=== PATIENT | male | born 1985 | race Caucasian/White ===

== ENCOUNTER 2017-10-24 11:21 | Emergency (ER) | payer SELFPAY ==
[~2017-10-24] VITALS: Ht 177.8 cm; Wt 58.1 kg
[2017-10-24] MEDS ORDERED: SODIUM CHLORIDE 0.9% 1000ML 1,000 ML IV STA ×2 (11:22→13:07)
[2017-10-24] MEDS ORDERED: MORPHINE SULFATE 4 MG/ML SYR IV STA (11:22)
[2017-10-24] MEDS ORDERED: ONDANSETRON HCL 4 MG ORAL DISINTEGRATING TAB PO ONE (11:30)
[2017-10-24] MEDS ORDERED: HYDROMORPHONE 1MG/1ML INJ IV STA ×3 (11:41→13:46)
[2017-10-24] MEDS ORDERED: HYDROMORPHONE 2MG/ML INJ IV NR ×2 (11:45→14:00)
[2017-10-24 12:06] LABS: BASOPHILS % 0.2 % (0.0-1.0); EOSINOPHILS # (AUTO) 0.1 (0.0-0.4); EOSINOPHILS % 0.3 % (0.0-6.0); HEMATOCRIT 44.9 % (38.2-49.6); HEMOGLOBIN 16.3 g/dL (14.0-18.0); LYMPHOCYTES # (AUTO) 1.6 (1.0-3.2); LYMPHOCYTES % 9.7 % (18.0-39.1); MEAN CORPUSCULAR HEMOGLOBIN 30.5 pg (28-32); MEAN CORPUSCULAR HGB CONC 36.3 g/dL (31-35); MEAN CORPUSCULAR VOLUME 83.9 fL (81-99); MONOCYTES # (AUTO) 0.8 (0.2-0.8); MONOCYTES % 4.9 % (4.4-11.3); NEUTROPHILS # (AUTO) 14.3 (2.1-6.9); NEUTROPHILS % 84.3 % (38.7-80.0); PLATELET COUNT 198 x10e3/uL (140-360); RED BLOOD COUNT 5.35 x10e6/uL (4.3-5.7); RED CELL DISTRIBUTION WIDTH 12.5 % (11.7-14.4)
[2017-10-24 12:25] LABS: ALANINE AMINOTRANSFERASE 8 IU/L (0-55); ALBUMIN 4.8 g/dL (3.5-5.0); ALBUMIN/GLOBULIN RATIO 1.6 (0.8-2.0); ALKALINE PHOSPHATASE 68 IU/L (40-150); ANION GAP 19.6 mmol/L (8-16); BLOOD UREA NITROGEN 15 mg/dL (7-26); BUN/CREATININE RATIO 13 (6-25); CALCIUM 10.2 mg/dL (8.4-10.2); CARBON DIOXIDE 20 mmol/L (22-29); CHLORIDE 102 mmol/L (98-107); CREATININE, SERUM 1.17 mg/dL (0.72-1.25); EST GLOMERULAR FILTRATION RATE > 60 ML/MIN (60-); GLUCOSE 107 mg/dL (74-118); POTASSIUM 3.6 mmol/L (3.5-5.1); SODIUM 138 mmol/L (136-145)
[2017-10-24 12:48] LABS: BILIRUBIN,URINE 1+ (NEGATIVE); CLARITY,URINE CLOUDY (CLEAR); COLOR,URINE AMBER (YELLOW); KETONES,URINE 2+ (NEGATIVE); LEUKOCYTE ESTERASE ,URINE NEGATIVE (NEGATIVE); NITRITE,URINE NEGATIVE (NEGATIVE); PROTEIN,URINE DIPSTICK 2+ (NEGATIVE); URINE UROBILINOGEN 0.2 mg/dL (0.2 - 1)
--- NOTE | 2017-10-24 12:58 | Diagnostic Imaging Report ---
PROCEDURE: CT ABDOMEN AND PELVIS WITHOUT CONTRAST TECHNIQUE: The abdomen and pelvis were scanned utilizing a multidetector helical scanner from the diaphragm to the lesser trochanter after the oral administration of water (Gastroview/Readi-Cat 2). No IV contrast was administered per protocol. Coronal and sagittal multiplanar reformations were obtained. COMPARISON: None. INDICATIONS: LEFT FLANK PAIN, HISTORY RENAL STONES FINDINGS: ABSENCE OF INTRAVENOUS CONTRAST DECREASES SENSITIVITY FOR DETECTION OF FOCAL LESIONS AND VASCULAR PATHOLOGY. LOWER THORAX: Lung bases are clear. HEPATOBILIARY: Mild hepatomegaly, measuring 17.0 cm in the right midclavicular line. No focal lesions. No biliary ductal dilation. The gallbladder is unremarkable. SPLEEN: No splenomegaly. PANCREAS: No focal masses or ductal dilatation. ADRENALS: No adrenal nodules. KIDNEYS/URETERS: Left: 7 mm partially obstructing calculus in the proximal left ureter (series 3, image 75 and sagittal image 52), which results in mild proximal hydroureter and minimal hydronephrosis. Punctate, nonobstructing calculus in the superior pole (series 3, image 36). No other left renal or ureteral calculi. No renal contour abnormalities. Right: 3 mm nonobstructing calculus in the mid to inferior aspect (series 3, image 76). Adjacent 4 and 2 mm nonobstructing calculi in the mid to inferior aspect (series 3, image 79). Punctate, non-obstructing calculus in the anterior mid to inferior aspect (series 3, image 79). 3 mm nonobstructing calculus in the inferior pole (series 3, image 81). No ureteral calculi, hydronephrosis, or obstruction. No renal contour abnormalities. PELVIC ORGANS/BLADDER: No bladder calculi. No wall thickening or focal lesions. Prostate is unremarkable. PERITONEUM / RETROPERITONEUM: No free air or fluid. LYMPH NODES: No lymphadenopathy. VESSELS: Unremarkable. GI TRACT: No bowel dilation or obstruction. No pericolonic inflammatory changes. BONES AND SOFT TISSUES: No aggressive lytic lesion. Soft tissues are unremarkable. IMPRESSION: 1. 7 mm partially obstructing calculus in the proximal left ureter, which results in mild proximal hydroureter and minimal hydronephrosis. 2. Bilateral nonobstructing calculi, as described. 3. Mild hepatomegaly. Ashish Byrd M.D. Dictated by: Ashish Byrd M.D. on 10/24/2017 at 13:00 Electronically approved by: Ashish Byrd M.D. on 10/24/2017 at 13:00
[2017-10-24] MEDS ORDERED: KETOROLAC TROMETHAMINE 30 MG/ML VIAL IV STA (13:07)
[2017-10-24] MEDS ORDERED: KETOROLAC TROMETHAMINE 30 MG/ML VIAL ONE (13:09)
[2017-10-24 13:17] LABS: EPITHELIAL CELLS,URINE RARE /LPF; RBC,URINE >50 /HPF (0-5); WBC,URINE (MAN) 0-5 /HPF (0-5)
[2017-10-24] MEDS ORDERED: ONDANSETRON HCL 4 MG ORAL DISINTEGRATING TAB PO PRN (14:30)
[2017-10-24] MEDS ORDERED: HYDROMORPHONE 1MG/1ML INJ IV PRN (14:30)
[2017-10-24] MEDS ORDERED: HYDROMORPHONE 2MG/ML INJ IV SCH (14:37)
--- OUTSIDE RECORDS SUMMARY | 2017-10-24 14:51 | XMS REPORT ---
[facility] Address Unknown Phone Unavailable Care Team Providers Care Rock Crusher Name Role Phone ARDEN STALLWORTH Unavailable Unavailable Problems This patient has no known problems. Allergies, Adverse Reactions, Alerts This patient has no known allergies or adverse reactions. Medications This patient has no known medications. Results Test Description Test Time Test Comments Text Results Atomic Results Result Comments CT ABDOMEN/PELVIS WO [place] [address] Patient Name: ALMA KELLEY MR #: [id number] : 1985 Age/Sex: 32/M Req #: [id number] Adm Physician: Ordered by: SELINA PECK ENTREPRENEURSHIP PROGRAM DIRECTOR Report #: [id number] Location: ER Room/Bed: Procedure: CT/CT ABDOMEN/PELVIS WO Exam Date: 10/24/17 Exam Time: 1210 REPORT STATUS: Signed PROCEDURE: CT ABDOMEN AND PELVIS WITHOUT CONTRAST TECHNIQUE: The abdomen and pelvis were scanned utilizing a multidetector helical scanner from the diaphragm to the lesser trochanter after the oral administration of water (Gastroview/ Readi-Cat 2). No IV contrast was administered per protocol. Coronal and sagittal multiplanar reformations were obtained. COMPARISON: None. INDICATIONS: LEFT FLANK PAIN, HISTORY RENAL STONES FINDINGS: ABSENCE OF INTRAVENOUS CONTRAST DECREASES SENSITIVITY FOR DETECTION OF FOCAL LESIONS AND VASCULAR PATHOLOGY. LOWER THORAX: Lung bases are clear. HEPATOBILIARY: Mild hepatomegaly, measuring 17.0 cm in the right midclavicular line. No focal lesions. No biliary ductal dilation. The gallbladder is unremarkable. SPLEEN: No splenomegaly. PANCREAS: No focal masses or ductal dilatation. ADRENALS: No adrenal nodules. KIDNEYS/ URETERS: Left: 7 mm partially obstructing calculus in the proximal left ureter (series 3, image 75 and sagittal image 52), which results in mild proximal hydroureter and minimal hydronephrosis. Punctate, nonobstructing calculus in the superior pole (series 3, image 36). No other left renal or ureteral calculi. No renal contour abnormalities. Right: 3 mm nonobstructing calculus in the mid to inferior aspect (series 3, image 76). Adjacent 4 and 2 mm nonobstructing calculi in the mid to inferior aspect ( series 3, image 79). Punctate, non-obstructing calculus in the anterior mid to inferior aspect (series 3, image 79). 3 mm nonobstructing calculus in the inferior pole (series 3, image 81). No ureteral calculi, hydronephrosis, or obstruction. No renal contour abnormalities. PELVIC ORGANS/BLADDER: No bladder calculi. No wall thickening or focal lesions. Prostate is unremarkable. PERITONEUM / RETROPERITONEUM: No free air or fluid. LYMPH NODES: No lymphadenopathy. VESSELS: Unremarkable. GI TRACT: No bowel dilation or obstruction. No pericolonic inflammatory changes. BONES AND SOFT TISSUES: No aggressive lytic lesion. Soft tissues are unremarkable. IMPRESSION: 1. 7 mm partially obstructing calculus in the proximal left ureter, which results in mild proximal hydroureter and minimal hydronephrosis. 2. Bilateral nonobstructing calculi, as described. 3. Mild hepatomegaly. Jolie Byrd M.D. Dictated by: Jolie Byrd M.D. on 10/24/2017 at 13:00 Electronically approved by: Jolie Byrd M.D. on 10/24/2017 at 13:00 Dictated By: JOLIE BYRD MD 1300 Transcribed By: REJI on 10/24/17 1300 COPY TO: SELINA PECK NP
[2017-10-24] MEDS ORDERED: FENTANYL CITRATE/PF 100MCG/2 ML INJ IV ONE (15:00)
[2017-10-24] MEDS ORDERED: LORAZEPAM INJ 2 MG/ML VIAL IV ONE (15:30)
[2017-10-24 17:58] VITALS: BP 115/64
== END 2017-10-24 17:45 | disposition other institution (70) ==
LOC: ER 11:21 → ERHOLD 14:48 → UNDOADMOB 14:48 → ERHOLD 15:02 → IMCU 15:02
DX: R10.9 Unspecified abdominal pain (principal); R11.2 Nausea with vomiting, unspecified; N20.1 Calculus of ureter
CPT/HCPCS: 36415; 74176; 80053; 81001; 85025; 87086; 99284; J1170; J1885; J2060; J7030

== ENCOUNTER 2017-10-27 07:17 | Emergency (ER) | payer SELFPAY ==
[~2017-10-27] VITALS: Ht 177.8 cm; Wt 58.1 kg
--- OUTSIDE RECORDS SUMMARY | 2017-10-27 07:19 | XMS REPORT | Clinical Summary ---
Author Author [facility] Address Unknown Phone Unavailable Care Team Providers Care Air Moving Technician Name Role Phone PCP Unavailable Allergies No Known Allergies Current Medications Prescription Sig. Disp. Refills Start End Date Status Date phenazopyridine Take 1 tablet (95 mg 10 tablet 0 10/26/19 10/31/19 Active (PYRIDIUM) 95 MG tablet total) by mouth 3 (three) 18 18 times daily with meals for 5 days. tamsulosin (FLOMAX) 0.4 Take 1 capsule (0.4 mg 5 capsule 0 10/27/19 Active mg Cp24 24 hr capsule total) by mouth daily. 18 ciprofloxacin HCl (CIPRO) Take 1 tablet (500 mg 5 tablet 0 10/25/10/31/19 Active 500 MG tablet total) by mouth 2 (two) 18 18 times daily for 5 days. Active Problems Problem Noted Date Left ureteral stone 10/24/2017 Hematuria 10/24/2017 Kidney stones 10/24/2017 Encounters Date Type Specialty Care Team Description 10/24/2017 [facility] General [facility], Left ureteral - Encounter MD Loretta stone;Hematuria, 10/25/2017 Narcisa Ann, unspecified type 10/24/2017 Anesthesia ReDevorah vazquez CRNA 10/24/2017 Procedure Pass 10/24/2017 Surgery Ilya Chung MD CYSTOSCOPY,INSERTION URETERAL STENTS after 10/26/2016 Social History Tobacco Use Types Packs/Day Years Used Date Current Every Day Smoker 0.5 Smokeless Tobacco: Never Used Tobacco Cessation: Ready to Quit: Yes; Counseling Given: No Alcohol Use Drinks/Week oz/Week Comments Yes Sex Assigned at Date Recorded Not on file Last Filed Vital Signs Vital Sign Reading Time Taken Blood Pressure 111/57 10/25/2017 4:28 AM CDT Pulse 70 10/25/2017 7:38 AM CDT Temperature 37 C (98.6 F) 10/25/2017 4:28 AM CDT Respiratory Rate 17 10/25/2017 7:38 AM CDT Oxygen Saturation 98% 10/25/2017 7:38 AM CDT Inhaled Oxygen - - Concentration Weight 58.5 kg (129 lb) 10/24/2017 8:27 PM CDT Height 177.8 cm (5' 10") 10/24/2017 8:27 PM CDT Body Mass Index 18.51 10/24/2017 8:27 PM CDT Plan of Treatment Not on file Implants Implanted Type Area [employer] Device Expiration Model / Identifier Date Serial / Lot Set Stent Injection 6x26cm [id number] Uro Stent [place] 06/02/2019 [id number] / - [id number] [employer] [id number] Implanted: Qty: 1 on 10/24/2017 by Bharat / Ilya Chung MD [id number] Procedures Procedure Name Priority Date/Time Associated Diagnosis Comments CYSTOSCOPY,RETROGRADES 10/24/2017 Left ureteral stone 10:10 PM CDT CYSTOSCOPY,INSERTION 10/24/2017 Left ureteral stone URETERAL STENTS 10:10 PM CDT after 10/26/2016 Results * CBC with platelet count + automated diff (10/25/2017 4:35 AM) Only the most recent of 2 results within the time period is included. Component Value Ref Range WBC 10.3 3.5 - 10.5 K/ L RBC 4.90 4.63 - 6.08 M/ L Hemoglobin 14.6 13.7 - 17.5 GM/DL Hematocrit 42.0 40.1 - 51.0 % MCV 85.7 79.0 - 92.2 fL MCH 29.8 25.7 - 32.2 pg MCHC 34.8 32.3 - 36.5 GM/DL RDW 12.7 11.6 - 14.4 % Platelets 159 150 - 450 K/CU MM MPV 10.4 9.4 - 12.4 fL nRBC 0 0 - 0 /100 WBC % Neutros 92 % % Lymphs 7 % % Monos 1 % % Eos 0 % % Baso 0 % # Neutros 9.46 (H) 1.78 - 5.38 K/ L # Lymphs 0.72 (L) 1.32 - 3.57 K/ L # Monos 0.07 (L) 0.30 - 0.82 K/ L # Eos 0.00 (L) 0.04 - 0.54 K/ L # Baso 0.01 0.01 - 0.08 K/ L Immature 1 0 - 1 % Granulocytes-Relative Specimen Performing Laboratory Blood [address] [address] * CBC with platelet count + automated diff (10/25/2017 4:35 AM) Only the most recent of 2 results within the time period is included. Specimen Performing Laboratory Blood Narrative The following orders were created for panel order CBC with platelet count + automated diff. Procedure Abnormality Status --------- - ------ CBC with platelet count ...[[id number]]AbnormalFinal result Please view results for these tests on the individual orders. * Magnesium (10/25/2017 4:35 AM) Component Value Ref Range Magnesium 2.0 1.6 - 2.6 mg/dL Specimen Performing Laboratory Blood [address] [address] * Basic metabolic panel (10/25/2017 4:35 AM) Only the most recent of 2 results within the time period is included. Component Value Ref Range Sodium 138 136 - 145 meq/L Potassium 4.4 3.5 - 5.1 meq/L Chloride 108 (H) 98 - 107 meq/L CO2 21 (L) 22 - 29 meq/L BUN 12 7 - 21 mg/dL Creatinine 0.82 0.57 - 1.25 mg/dL Glucose 167 (H) 70 - 105 mg/dL Calcium 9.0 8.4 - 10.2 mg/dL EGFR 109Comment: ESTIMATED GFR IS NOT ACCURATE mL/min/1.73 sq m CREATININE CLEARANCE IN PREDICTING GLOMERULAR FILTRATION RATE. ESTIMATED GFR IS NOT APPLICABLE FOR DIALYSIS PATIENTS. Specimen Performing Laboratory Blood [address] [address] * Urine culture (10/24/2017 11:04 PM) Only the most recent of 2 results within the time period is included. Component Value Ref Range Result No growth Specimen Performing Laboratory Urine - Urine, [facility] Unspecified Source [address] [place] [id number] * Urinalysis w/Microscopic + Reflex to Culture (10/24/2017 9:17 PM) Component Value Ref Range Color, UA Light Yellow Clarity, UA Clear Specific [place], UA 1.008 1.001 - 1.035 pH, UA 6.0 5.0 - 8.0 Protein, UA Negative Negative Glucose, UA Negative Negative Ketones, UA Trace (A) Negative Bilirubin, UA Negative Negative Blood, UA Small (A) Negative Nitrite, UA Negative Negative Leukocytes, UA Small (A) Negative Urobilinogen, UA 0.2 0.2 - 1.0 mg/dL RBC, UA 11 /HPF WBC, UA 1 /HPF Mucus Rare Squam Epithel, UA <1 /HPF Ca Oxalate Yane, UA Rare Specimen Source Specimen Performing Laboratory Urine - Urine, Voided [address] [address] * Lactic acid, venous, whole blood (10/24/2017 9:17 PM) Component Value Ref Range Lactate, Venous 1.2 0.5 - 2.2 mmol/L Specimen Performing Laboratory Blood - Arm, [address] [address] Narrative Effective 10/05/2015: Units/Reference Range Change New: 0.5-2.2 mmol/LPrevious: 5-20 mg/dL * aPTT (10/24/2017 9:17 PM) Component Value Ref Range PTT 31.0 22.5 - 36.0 seconds Specimen Performing Laboratory Blood - Arm, [address] [address] * Prothrombin time/INR (10/24/2017 9:17 PM) Component Value Ref Range Protime 14.4 11.7 - 14.7 seconds INR 1.1 <=5.9 Specimen Performing Laboratory Blood - Arm, [address] [address] Narrative RECOMMENDED COUMADIN/WARFARIN INR THERAPY RANGES STANDARD DOSE: 2.0 - 3.0 Includes: PROPHYLAXIS for venous thrombosis, systemic embolization; TREATMENT for venous thrombosis and/or pulmonary embolus. HIGH RISK: Target INR is 2.5-3.5 for patients with mechanical heart valves. after 10/26/2016
[2017-10-27] MEDS ORDERED: KETOROLAC TROMETHAMINE 30 MG/ML VIAL IV STA (07:37)
[2017-10-27] MEDS ORDERED: PYRIDIUM100 MG PO (07:59)
[2017-10-27] MEDS ORDERED: CIPRO500 MG PO (07:59)
[2017-10-27] MEDS ORDERED: FLOMAX0.4 MG PO (07:59)
[2017-10-27 08:07] LABS: BASOPHILS % 0.3 % (0.0-1.0); EOSINOPHILS # (AUTO) 0.1 (0.0-0.4); EOSINOPHILS % 1.5 % (0.0-6.0); HEMATOCRIT 42.4 % (38.2-49.6); HEMOGLOBIN 14.9 g/dL (14.0-18.0); LYMPHOCYTES % 34.2 % (18.0-39.1); MEAN CORPUSCULAR HEMOGLOBIN 30.1 pg (28-32); MEAN CORPUSCULAR HGB CONC 35.1 g/dL (31-35); MEAN CORPUSCULAR VOLUME 85.7 fL (81-99); MONOCYTES # (AUTO) 0.6 (0.2-0.8); MONOCYTES % 6.7 % (4.4-11.3); PLATELET COUNT 185 x10e3/uL (140-360); RED BLOOD COUNT 4.95 x10e6/uL (4.3-5.7); RED CELL DISTRIBUTION WIDTH 12.7 % (11.7-14.4)
--- NOTE | 2017-10-27 08:09 | Diagnostic Imaging Report ---
Exam: Head CT without contrast History: Syncope Comparison studies: None Technique: Axial images were obtained from the skull base to the vertex. Coronal and sagittal images reconstructed from the axial data. Intravenous contrast: None Findings: Scalp: No abnormalities. Bones: No fractures, blastic or lytic lesions. Brain sulci: Appropriate for age. Ventricles: Normal in size and configuration. No hydrocephalus. Extra-axial spaces: No masses, no fluid collection. Parenchyma: No abnormal densities. No masses, acute hemorrhage, acute or chronic vascular insults. Sellar/suprasellar region: No abnormalities. Craniocervical junction: Patent foramen magnum. No Chiari one malformation. IMPRESSION: No abnormalities. Signed by: Dr. Michael Pelaez M.D. on 10/27/2017 8:05 AM
[2017-10-27 08:26] LABS: CLARITY,URINE OTHER (CLEAR); COLOR,URINE RED (YELLOW); LEUKOCYTE ESTERASE ,URINE 1+ (NEGATIVE); NITRITE,URINE POSITIVE (NEGATIVE); PROTEIN,URINE DIPSTICK 3+ (NEGATIVE)
[2017-10-27 08:27] LABS: BACTERIA,URINE MODERATE /HPF; BILIRUBIN,URINE NEGATIVE (NEGATIVE); KETONES,URINE NEGATIVE (NEGATIVE); RBC,URINE >50 /HPF (0-5); URINE UROBILINOGEN 0.2 mg/dL (0.2 - 1)
[2017-10-27] MEDS ORDERED: HYDROMORPHONE 2MG/ML INJ IV ONE ×2 (08:30→10:30)
[2017-10-27] MEDS ORDERED: ONDANSETRON HCL 4 MG ORAL DISINTEGRATING TAB PO ONE ×2 (08:30→09:00)
[2017-10-27 08:34] LABS: ALANINE AMINOTRANSFERASE 9 IU/L (0-55); ALBUMIN 4.3 g/dL (3.5-5.0); ALBUMIN/GLOBULIN RATIO 1.5 (0.8-2.0); ALKALINE PHOSPHATASE 58 IU/L (40-150); ANION GAP 14.4 mmol/L (8-16); BLOOD UREA NITROGEN 15 mg/dL (7-26); BUN/CREATININE RATIO 15 (6-25); CALCIUM 9.6 mg/dL (8.4-10.2); CARBON DIOXIDE 23 mmol/L (22-29); CHLORIDE 106 mmol/L (98-107); CREATININE, SERUM 0.99 mg/dL (0.72-1.25); EST GLOMERULAR FILTRATION RATE > 60 ML/MIN (60-); GLUCOSE 84 mg/dL (74-118); POTASSIUM 3.4 mmol/L (3.5-5.1); SODIUM 140 mmol/L (136-145)
[2017-10-27] MEDS ORDERED: CEFTRIAXONE SOD 1 GM VIAL IV ONE (09:30)
--- NOTE | 2017-10-27 09:47 | Diagnostic Imaging Report ---
EXAM: ABDOMEN-1VIEW (KUB), DATE: 10/27/2017 7:37 AM INDICATION: Syncope, stone stent placed COMPARISON: None FINDINGS: LINES/TUBES: Left ureteral stent with proximal loop overlying the left renal silhouette and inferiorly up overlying the expected bladder. No radiopaque calculi are noted along the course of the stent. BOWEL PATTERN: No evidence for obstruction. SOFT TISSUES: Multiple calcifications overlie the right renal silhouette, the largest measures 5 mm. A 4 mm calcification overlies the left renal silhouette. No radiopaque calculi overlie the bladder. LUNG BASES: Not included BONES: No acute findings. IMPRESSION: Left ureteral stent without radiopaque stones along the course of the stent. Nephrolithiasis, right greater than left. Signed by: DR. Estrada Aguila MD on 10/27/2017 9:43 AM
[2017-10-27 11:03] VITALS: BP 129/81
== END 2017-10-27 11:23 | disposition home or self-care (01) ==
LOC: ER 07:17
DX: R10.32 Left lower quadrant pain (principal); R11.0 Nausea; N20.1 Calculus of ureter; F17.210 Nicotine dependence, cigarettes, uncomplicated
CPT/HCPCS: 99284; J0696; J1170; J1885

== ENCOUNTER 2021-01-09 13:28 | Inpatient (IN) | payer OTHER ==
[~2021-01-09] VITALS: Ht 177.8 cm; Wt 70.3 kg
[~2021-01-09 13:28] MED LIST: CIPRO500 MG PO; FLOMAX0.4 MG PO; PYRIDIUM100 MG PO; TYLENOL WITH C1 EACH PO
[2021-01-09] MEDS ORDERED: ONDANSETRON HCL INJ 2MG/ML 2ML 2 MG/ML VIAL IV STA (13:58)
[2021-01-09] MEDS ORDERED: MORPHINE SULFATE INJ 4 MG/ML INJ 1ML IV PRN ×2 (14:00→16:15)
[2021-01-09] MEDS ORDERED: ONDANSETRON HCL INJ 2MG/ML 2ML 8 MG in SODIUM CHLORIDE 0.9% 50ML 50 ML IV ONE (14:30)
[2021-01-09 14:31] LABS: CLARITY,URINE TURBID (CLEAR); COLOR,URINE BROWN (YELLOW)
[2021-01-09 14:32] LABS: KETONES,URINE 1+ (NEGATIVE); LEUKOCYTE ESTERASE ,URINE LARGE (NEGATIVE); NITRITE,URINE NEGATIVE (NEGATIVE); PROTEIN,URINE DIPSTICK >=300 (NEGATIVE); URINE UROBILINOGEN 2 mg/dL (0.2 - 1)
[2021-01-09 14:48] LABS: BACTERIA,URINE FEW /HPF; RBC,URINE >50 /HPF (0-5)
[2021-01-09 15:25] LABS: BASOPHILS % 0.2 % (0.0-1.0); EOSINOPHILS % 0.2 % (0.0-6.0); HEMATOCRIT 46.4 % (38.2-49.6); HEMOGLOBIN 15.6 g/dL (14.0-18.0); LYMPHOCYTES # (AUTO) 1.5 (1.0-3.2); LYMPHOCYTES % 12.7 % (18.0-39.1); MEAN CORPUSCULAR HGB CONC 33.6 g/dL (31-35); MEAN CORPUSCULAR VOLUME 89.2 fL (81-99); MONOCYTES # (AUTO) 0.5 (0.2-0.8); MONOCYTES % 3.8 % (4.4-11.3); NEUTROPHILS # (AUTO) 9.9 (2.1-6.9); NEUTROPHILS % 82.7 % (38.7-80.0); PLATELET COUNT 178 x10e3/uL (140-360); RED CELL DISTRIBUTION WIDTH 12.9 % (11.7-14.4)
[2021-01-09 15:44] LABS: ALBUMIN 4.5 g/dL (3.5-5.0); ALBUMIN/GLOBULIN RATIO 1.6 (0.8-2.0); ANION GAP 13.2 mmol/L (8-16); CREATININE, SERUM 0.88 mg/dL (0.72-1.25); POTASSIUM 4.2 mmol/L (3.5-5.1)
[2021-01-09] MEDS ORDERED: KETOROLAC TROMETHAMINE 30 MG/ML VIAL IV STA (15:56)
[2021-01-09] MEDS ORDERED: CEFTRIAXONE 1 GM VIAL IM ONE (16:00)
[2021-01-09] MEDS ORDERED: ONDANSETRON HCL INJ 2MG/ML 2ML 2 MG/ML VIAL IV PRN (16:15)
[2021-01-09] MEDS ORDERED: TAMSULOSIN HCL 0.4 MG CAP PO SCH (16:30)
[2021-01-09 21:00] VITALS: BP 133/85
[2021-01-09 21:22] VITALS: BP 133/85
[2021-01-09] MEDS: SODIUM CHLORIDE 0.9% 1000ML 1,000 ML IV SCH (22:27)
[2021-01-09] MEDS: KETOROLAC TROMETHAMINE 30 MG/ML VIAL IV SCH (22:27)
[2021-01-09] MEDS: CEFEPIME 1 GM in SODIUM CHLORIDE 0.9% 50ML 50 ML IV SCH (22:27)
[2021-01-09] MEDS ORDERED: no home med (22:42)
[2021-01-10] VITALS (8 sets, daily range): BP systolic 110–123; BP diastolic 66–76
[2021-01-10] MEDS: SODIUM CHLORIDE 0.9% 1000ML 1,000 ML IV SCH ×3 (00:37→17:10)
[2021-01-10] MEDS ORDERED: BENZONATATE 100 MG CAP PO PRN (00:45)
[2021-01-10] MEDS ORDERED: LIDOCAINE 4% PATCH TP PRN (00:45)
[2021-01-10] MEDS ORDERED: SIMETHICONE 80 MG CHEW PO PRN (00:45)
[2021-01-10] MEDS ORDERED: DIPHENHYDRAMINE HCL 25 MG CAP PO PRN (00:45)
[2021-01-10] MEDS ORDERED: HYDRALAZINE HCL 20 MG/ML VIAL IV PRN (00:45)
[2021-01-10] MEDS ORDERED: DEXTROSE 50% SYRINGE 50 ML IV PRN (00:45)
[2021-01-10] MEDS ORDERED: DOCUSATE SODIUM 100 MG CAP PO PRN (00:45)
[2021-01-10] MEDS ORDERED: ALBUTEROL/IPRATROPIUM 3 ML NEB NEB PRN (00:45)
[2021-01-10] MEDS ORDERED: ONDANSETRON HCL INJ 2MG/ML 2ML 2 MG/ML VIAL IV PRN ×2 (00:45)
[2021-01-10] MEDS ORDERED: POTASSIUM CHLORIDE 20 MEQ TAB CR PO PRN (00:45)
[2021-01-10] MEDS: KETOROLAC TROMETHAMINE 30 MG/ML VIAL IV SCH ×4 (04:12→23:25)
[2021-01-10] MEDS: CEFEPIME 1 GM in SODIUM CHLORIDE 0.9% 50ML 50 ML IV SCH ×3 (05:25→21:19)
[2021-01-10 06:00] LABS: BASOPHILS % 0.1 % (0.0-1.0); EOSINOPHILS # (AUTO) 0.2 (0.0-0.4); EOSINOPHILS % 2.8 % (0.0-6.0); HEMATOCRIT 41.7 % (38.2-49.6); HEMOGLOBIN 13.9 g/dL (14.0-18.0); LYMPHOCYTES # (AUTO) 2.7 (1.0-3.2); LYMPHOCYTES % 38.7 % (18.0-39.1); MEAN CORPUSCULAR HEMOGLOBIN 29.9 pg (28-32); MEAN CORPUSCULAR HGB CONC 33.3 g/dL (31-35); MEAN CORPUSCULAR VOLUME 89.7 fL (81-99); MONOCYTES # (AUTO) 0.6 (0.2-0.8); MONOCYTES % 7.8 % (4.4-11.3); NEUTROPHILS # (AUTO) 3.5 (2.1-6.9); NEUTROPHILS % 50.3 % (38.7-80.0); PLATELET COUNT 146 x10e3/uL (140-360); RED BLOOD COUNT 4.65 x10e6/uL (4.3-5.7); RED CELL DISTRIBUTION WIDTH 13.1 % (11.7-14.4)
[2021-01-10 06:38] LABS: ANION GAP 10.7 mmol/L (8-16); CALCIUM 8.1 mg/dL (8.4-10.2); CREATININE, SERUM 0.81 mg/dL (0.72-1.25); POTASSIUM 3.7 mmol/L (3.5-5.1)
[2021-01-10 07:01] LABS: THYROID STIMULATING HORMONE 2.821 uIU/mL (0.350-4.940)
[2021-01-10] MEDS: PANTOPRAZOLE SOD 40 MG TABEC PO SCH (08:28)
[2021-01-10] MEDS: ENOXAPARIN SOD INJ 40 MG/0.4 ML SYR SC SCH (17:09)
[2021-01-10] MEDS: TAMSULOSIN HCL 0.4 MG CAP PO SCH (21:19)
[2021-01-10] MEDS: ACETAMINOPHEN 325 MG TAB PO PRN (23:15)
[2021-01-10] MEDS: MELATONIN 5 MG TABLET PO PRN (23:25)
[2021-01-11] VITALS (8 sets, daily range): BP systolic 108–126; BP diastolic 64–89
[2021-01-11] MEDS: SODIUM CHLORIDE 0.9% 1000ML 1,000 ML IV SCH ×4 (03:00→22:01)
[2021-01-11 04:55] LABS: BASOPHILS % 0.3 % (0.0-1.0); EOSINOPHILS # (AUTO) 0.1 (0.0-0.4); EOSINOPHILS % 2.1 % (0.0-6.0); HEMATOCRIT 40.4 % (38.2-49.6); HEMOGLOBIN 13.9 g/dL (14.0-18.0); LYMPHOCYTES # (AUTO) 2.3 (1.0-3.2); LYMPHOCYTES % 36.9 % (18.0-39.1); MEAN CORPUSCULAR HEMOGLOBIN 30.4 pg (28-32); MEAN CORPUSCULAR HGB CONC 34.4 g/dL (31-35); MEAN CORPUSCULAR VOLUME 88.4 fL (81-99); MONOCYTES # (AUTO) 0.4 (0.2-0.8); NEUTROPHILS # (AUTO) 3.4 (2.1-6.9); NEUTROPHILS % 54.4 % (38.7-80.0); PLATELET COUNT 134 x10e3/uL (140-360); RED BLOOD COUNT 4.57 x10e6/uL (4.3-5.7); RED CELL DISTRIBUTION WIDTH 12.8 % (11.7-14.4)
[2021-01-11 05:10] LABS: ANION GAP 11.1 mmol/L (8-16); CALCIUM 7.8 mg/dL (8.4-10.2); CREATININE, SERUM 0.77 mg/dL (0.72-1.25); POTASSIUM 4.1 mmol/L (3.5-5.1)
[2021-01-11] MEDS: KETOROLAC TROMETHAMINE 30 MG/ML VIAL IV SCH ×3 (05:21→17:56)
[2021-01-11] MEDS: CEFEPIME 1 GM in SODIUM CHLORIDE 0.9% 50ML 50 ML IV SCH ×3 (05:21→22:01)
[2021-01-11] MEDS: ACETAMINOPHEN 325 MG TAB PO PRN (05:22)
[2021-01-11] MEDS: PANTOPRAZOLE SOD 40 MG TABEC PO SCH (09:35)
[2021-01-11] MEDS: ENOXAPARIN SOD INJ 40 MG/0.4 ML SYR SC SCH (16:56)
[2021-01-11] MEDS: HYDROCODONE/APAP 5MG-325MG TAB PO PRN (20:43)
[2021-01-11] MEDS: MELATONIN 5 MG TABLET PO PRN (20:43)
[2021-01-11] MEDS: TAMSULOSIN HCL 0.4 MG CAP PO SCH (20:43)
[2021-01-12] VITALS (8 sets, daily range): BP systolic 131–152; BP diastolic 71–92
[2021-01-12] MEDS: KETOROLAC TROMETHAMINE 30 MG/ML VIAL IV SCH ×4 (00:02→17:40)
[2021-01-12] MEDS: HYDROCODONE/APAP 5MG-325MG TAB PO PRN ×4 (04:59→21:37)
[2021-01-12 05:40] LABS: BASOPHILS % 0.2 % (0.0-1.0); EOSINOPHILS # (AUTO) 0.1 (0.0-0.4); HEMATOCRIT 40.8 % (38.2-49.6); HEMOGLOBIN 13.7 g/dL (14.0-18.0); LYMPHOCYTES # (AUTO) 2.2 (1.0-3.2); LYMPHOCYTES % 32.9 % (18.0-39.1); MEAN CORPUSCULAR HEMOGLOBIN 30.2 pg (28-32); MEAN CORPUSCULAR HGB CONC 33.6 g/dL (31-35); MEAN CORPUSCULAR VOLUME 89.9 fL (81-99); MONOCYTES # (AUTO) 0.5 (0.2-0.8); MONOCYTES % 6.9 % (4.4-11.3); NEUTROPHILS # (AUTO) 3.8 (2.1-6.9); NEUTROPHILS % 57.7 % (38.7-80.0); PLATELET COUNT 133 x10e3/uL (140-360); RED BLOOD COUNT 4.54 x10e6/uL (4.3-5.7)
[2021-01-12] MEDS: CEFEPIME 1 GM in SODIUM CHLORIDE 0.9% 50ML 50 ML IV SCH ×3 (06:01→21:36)
[2021-01-12 06:03] LABS: ANION GAP 11.9 mmol/L (8-16); CREATININE, SERUM 0.77 mg/dL (0.72-1.25); POTASSIUM 3.9 mmol/L (3.5-5.1)
[2021-01-12] MEDS: PANTOPRAZOLE SOD 40 MG TABEC PO SCH (09:36)
[2021-01-12] MEDS: SODIUM CHLORIDE 0.9% 1000ML 1,000 ML IV SCH ×2 (09:42→17:37)
[2021-01-12] MEDS: ENOXAPARIN SOD INJ 40 MG/0.4 ML SYR SC SCH (15:43)
[2021-01-12] MEDS: TAMSULOSIN HCL 0.4 MG CAP PO SCH (21:00)
[2021-01-12] MEDS: MELATONIN 5 MG TABLET PO PRN (21:36)
[2021-01-13 00:46] VITALS: BP 125/79
[2021-01-13] MEDS: SODIUM CHLORIDE 0.9% 1000ML 1,000 ML IV SCH (03:16)
[2021-01-13] MEDS: HYDROCODONE/APAP 5MG-325MG TAB PO PRN ×2 (03:17→16:22)
[2021-01-13 04:00] VITALS: BP 133/77
[2021-01-13 05:11] LABS: BASOPHILS % 0.3 % (0.0-1.0); EOSINOPHILS # (AUTO) 0.2 (0.0-0.4); EOSINOPHILS % 2.7 % (0.0-6.0); HEMATOCRIT 40.1 % (38.2-49.6); HEMOGLOBIN 13.9 g/dL (14.0-18.0); LYMPHOCYTES % 30.4 % (18.0-39.1); MEAN CORPUSCULAR HEMOGLOBIN 30.4 pg (28-32); MEAN CORPUSCULAR HGB CONC 34.7 g/dL (31-35); MEAN CORPUSCULAR VOLUME 87.7 fL (81-99); MONOCYTES # (AUTO) 0.5 (0.2-0.8); MONOCYTES % 7.9 % (4.4-11.3); NEUTROPHILS # (AUTO) 3.9 (2.1-6.9); NEUTROPHILS % 58.4 % (38.7-80.0); PLATELET COUNT 130 x10e3/uL (140-360); RED BLOOD COUNT 4.57 x10e6/uL (4.3-5.7); RED CELL DISTRIBUTION WIDTH 12.6 % (11.7-14.4)
[2021-01-13] MEDS: CEFEPIME 1 GM in SODIUM CHLORIDE 0.9% 50ML 50 ML IV SCH ×2 (05:21→14:00)
[2021-01-13] MEDS: KETOROLAC TROMETHAMINE 30 MG/ML VIAL IV SCH ×4 (05:22→12:45)
[2021-01-13 05:29] LABS: ANION GAP 12.9 mmol/L (8-16); CALCIUM 8.1 mg/dL (8.4-10.2); CREATININE, SERUM 0.73 mg/dL (0.72-1.25); POTASSIUM 3.9 mmol/L (3.5-5.1)
[2021-01-13] MEDS: PANTOPRAZOLE SOD 40 MG TABEC PO SCH (07:30)
[2021-01-13 08:06] VITALS: BP 115/69
[2021-01-13 08:08] VITALS: BP 115/69
[2021-01-13] MEDS ORDERED: IOPAMIDOL 300MG/ML 50ML INFUS..BTL IV ONE (11:03)
[2021-01-13 12:42] VITALS: BP 176/100
[2021-01-13] MEDS ORDERED: ACETAMINOPHEN/1 EAC1 PO (15:08)
[2021-01-13 16:50] VITALS: BP 109/66
== END 2021-01-13 19:10 | disposition home or self-care (01) | DRG 661 ==
LOC: ER 13:59 → ERHOLD 16:26 → MED/SURG2 21:36
PROVIDERS: ADMIT Internal Medicine; ATTEND Internal Medicine
PROC: 0TC13ZZ Extirpation of Matter from Left Kidney, Percutaneous Approach (ICD-10-PCS; principal; 2021-01-13 11:00)
DX: N13.2 Hydronephrosis with renal and ureteral calculous obstruction (principal); R00.1 Bradycardia, unspecified; R91.1 Solitary pulmonary nodule; Z87.442 Personal history of urinary calculi; Z87.898 Personal history of other specified conditions; Z20.822 Contact with and (suspected) exposure to COVID-19; I10 Essential (primary) hypertension; N39.0 Urinary tract infection, site not specified
CPT/HCPCS: 36415; 50590; 74018; 74176; 80048; 80053; 81001; 83735; 84443; 84484; 85025; 87086; 93041; 93306; 99284; J0692; J0696; J1650; J1885; J2270; J2405; J7030; U0002

== ENCOUNTER 2024-06-08 07:00 | Emergency (ER) | payer BC, OTHER ==
[~2024-06-08] VITALS: Ht 180.3 cm; Wt 58.1 kg
[~2024-06-08 07:00] MED LIST changes: +ACETAMINOPHEN/1 EAC1 PO; +no home med
[2024-06-08 07:05] VITALS: PULSE 71; RESP 18; TEMP 97.7; O2SAT 100
[2024-06-08] MEDS ORDERED: METHOCARBAMOL750 MG PO (07:11)
[2024-06-08] MEDS: KETOROLAC TROMETHAMINE 60 MG/2 ML VIAL IM ONE (07:17)
== END 2024-06-08 07:17 | disposition home or self-care (01) ==
LOC: ER 07:08
DX: M79.601 Pain in right arm (principal); S46.811A Strain of other muscles, fascia and tendons at shoulder and upper arm level, right arm, initial encounter; W01.0XXA Fall on same level from slipping, tripping and stumbling without subsequent striking against object, initial encounter; Y93.01 Activity, walking, marching and hiking; Y92.89 Other specified places as the place of occurrence of the external cause; Z87.442 Personal history of urinary calculi; F17.210 Nicotine dependence, cigarettes, uncomplicated
CPT/HCPCS: 99283; J1885